=== PATIENT | female | born 1985 | race Caucasian/White ===

== ENCOUNTER 2017-05-13 11:23 | Emergency (ER) | payer OTHER ==
[2017-05-13 11:50] VITALS: BP 117/80; PULSE 86; TEMP 98.3; BMI 18.6
[2017-05-13] MEDS ORDERED: IBUPROFEN 600 MG TABLET (FP) PO ONE (12:27)
[2017-05-13] MEDS ORDERED: LIDOCAINE HCL 2% JELLY (30 ML/TUBE) TP ONE (12:27)
[2017-05-13] MEDS ORDERED: BUPIVACAINE HCL 0.5% 250 MG/50 ML VIAL IJ ONE (12:29)
[2017-05-13] MEDS ORDERED: LIDOCAINE HCL 1%, 10 MG/ML (20ML VIAL) ONE (12:29)
[2017-05-13] MEDS ORDERED: BUPIVACAINE HCL/PF 0.5% (5MG/ML) 10 ML VIAL ONE (12:29)
[2017-05-13] MEDS ORDERED: LIDOCAINE HCL 2% JELLY (5 ML/TUBE) ONE (12:29)
--- NOTE | 2017-05-13 12:29 | PDOC ---
History of Present Illness - General Chief Complaint: Toothache Stated Complaint: TOOTHACHE Time Seen by Provider: 05/13/17 12:06 History Source: Patient Exam Limitations: No Limitations - History of Present Illness Initial Comments: 05/13/17 12:29 CHIEF COMPLAINT: Toothache HISTORY OF PRESENT ILLNESS: This is an otherwise healthy 31 year old female who presents for evaluation of left madibular molar pain. She has a cap that she lost about a week ago and has been having pain since then which is unrelieved by Motrin. She denies fevers/chills, facial swelling, or any other symptoms. V/s on arrival are unremarkable. REVIEW OF SYSTEMS: GENERAL/CONSTITUTIONAL: No fever or chills. No weakness. No weight change. HEAD, EYES, EARS, NOSE AND THROAT: No change in vision. No ear pain or discharge. No sore throat. CARDIOVASCULAR: No chest pain or palpitations. RESPIRATORY: No cough, wheezing, or shortness of breath. GASTROINTESTINAL: No nausea, vomiting, diarrhea or constipation. GENITOURINARY: No dysuria, frequency, or change in urination. MUSCULOSKELETAL: No joint or muscle swelling or pain. No neck or back pain. SKIN: No rash or easy bruising. NEUROLOGIC: No headache, vertigo, loss of consciousness, or loss of sensation. PSYCHIATRIC: No depression or anxiety. ENDOCRINE: No increased thirst. No abnormal weight change. HEMATOLOGIC/LYMPHATIC: No anemia, easy bleeding, or history of blood clots. ALLERGIC/IMMUNOLOGIC: No hives or skin allergy. No latex allergy. PHYSICAL EXAM: GENERAL: The patient is awake, alert, and fully oriented, in no acute distress. ENT: Pupils equal, round and reactive to light, extraocular movements intact, sclera anicteric, conjunctiva clear. Neck supple. Left mandibular second molar missing cap - no gingival erythema or swelling. LUNGS: Clear to auscultation bilaterally. Normal excursion. No respiratory distress or use of accessory muscles. CV: RRR, S1/S2, no MRG. Cap refill < 2 sec. ABDOMEN: Soft, non-distended, non-tender. EXTREMITIES: Normal range of motion, no edema. NEUROLOGICAL: Normal speech, normal gait. CN II-XII grossly intact. PSYCH: Normal mood, normal affect. SKIN: Warm, dry, normal turgor, no rashes or lesions noted. Past History - Past Medical History Allergies/Adverse Reactions: Allergies Allergy/AdvReac Type Severity Reaction Status Date / Time No Known Allergies Allergy Verified 05/13/17 11:48 Home Medications: Ambulatory Orders NK [No Known Home Medication] 05/13/17 Other medical history: denies - Immunization History Immunization Up to Date: No - Psycho/Social/Smoking Cessation Hx Suicidal Ideation: No Smoking History: Never smoked Hx Alcohol Use: No Drug/Substance Use Hx: No *Physical Exam - Vital Signs Last Vital Signs Temp Pulse Resp BP Pulse Ox 98.3 F 86 18 117/80 100 05/13/17 11:35 05/13/17 11:35 05/13/17 11:35 05/13/17 11:35 05/13/17 11:35 ED Treatment Course - ADDITIONAL ORDERS Additional order review: Laboratory Results 05/13/17 12:20 Urine HCG, Qual Positive Medical Decision Making - Medical Decision Making 05/13/17 15:30 A/P: 31 year old female with dental pain. No signs of infection. 1. Inferior alveolar block with 1mL 1% lidocaine and 1mL bupivicane with good relief 2. Urine POSITIVE - bhcg sent and resulted at 252 3. Transvaginal u/s reported: no IUP 4. Patient agrees to follow up for repeat testing in 1 week 5. Return precautions reviewed *DC/Admit/Observation/Transfer Diagnosis at time of Disposition: Pain, dental Qualifiers: Weeks of gestation: less than 8 weeks Qualified Code(s): Z3A.01 - Less than 8 weeks gestation of - Discharge Dispostion Admit: No - Patient Instructions Printed Discharge Instructions: DI for Dental Pain Additional Instructions: -You will need repeat blood work and ultrasound in one week to evaluate your . You do this at our clinic [facility] ([phone]) -Take Tylenol as needed for pain -Follow up with a dentist for definitive treatment -[facility] is one option: KADEN Chavis Opens at 4:00 PM KADEN Rodriguez Opens at 4:00 PM - Post Discharge Activity Work/School Note: Back to Work
[2017-05-13] MEDS ORDERED: ACETAMINOPHEN 500 MG TABLET (FP) PO ONE (15:02)
[2017-05-13] MEDS ORDERED: ACETAMINOPHEN 325 MG TABLET (FP) ONE (15:05)
== END 2017-05-13 15:13 | disposition home or self-care (01) ==
LOC: JERFT 11:23
DX: O99.89 Other specified diseases and conditions complicating pregnancy, childbirth and the puerperium (principal); K08.89 Other specified disorders of teeth and supporting structures; Z3A.01 Less than 8 weeks gestation of pregnancy
CPT/HCPCS: 36415; 76801-TC; 84702; 84703; 99281-25

== ENCOUNTER 2017-05-29 18:17 | Emergency (ER) | payer OTHER ==
[2017-05-29 18:28] VITALS: BP 110/65; PULSE 101; TEMP 98.7; BMI 18.6
--- NOTE | 2017-05-29 20:33 | PDOC ---
History of Present Illness - General Chief Complaint: Revisit,Radiology Variance Stated Complaint: ER REVIST Time Seen by Provider: 05/29/17 20:04 History Source: Patient Exam Limitations: No Limitations - History of Present Illness Travel History: No Initial Comments: 05/29/17 20:28 31yo Female patient with no significant past medical history presents to ED for follow up. Patient was seen on 05-13-17 for dental pain, and found to have + Urine . HCG level>200, US- neg for IUP. Patient was told to return in 1 week for repeat US. After examination patient in room, patient stated she had been here for 4 hour already. Patient was informed that she needed blood work and repeat US and this could take upwards of three hours. Patient refused and decided it was best to go home. She states she has to get up at 5 am for work and she did not want to be tired. Patient also had c/o vaginal bleeding/ spotting at this time. She denies any other complaints at this time. Past History - Travel Traveled outside of the country in the last 30 days: No Close contact w/someone who was outside of country & ill: No - Past Medical History Allergies/Adverse Reactions: Allergies Allergy/AdvReac Type Severity Reaction Status Date / Time No Known Allergies Allergy Verified 05/29/17 18:28 Home Medications: Ambulatory Orders NK [No Known Home Medication] 05/13/17 Other medical history: NONE - Immunization History Immunization Up to Date: No - Suicide/Smoking/Psychosocial Hx Smoking History: Never smoked Hx Alcohol Use: No Drug/Substance Use Hx: No Abd/GI Specific PMHX - Complaint Specific PMHX Colitis: No Diverticulitis: No Gall Bladder Disease: No GERD: No Hepatitis: No Irritable Bowel Synd (IBS): No Pancreatitis: No GI Ulcer Disease: No Review of Systems - Review of Systems Able to Perform ROS?: Yes Is the patient limited [place] proficient: No : Yes: Other (Vaginal Bleeding- .) All Other Systems: Reviewed and Negative *Physical Exam - Vital Signs Last Vital Signs Temp Pulse Resp BP Pulse Ox 98.7 F 101 H 20 110/65 100 05/29/17 18:25 05/29/17 18:25 05/29/17 18:25 05/29/17 18:25 05/29/17 18:25 - Physical Exam General Appearance: Yes: Nourished, Appropriately Dressed. No: Apparent Distress, Mild Distress, Moderate Distress, Severe Distress Neck: positive: Trachea midline, Supple. negative: Rigid, Stridor, Lymphadenopathy (R), Lymphadenopathy (L), Tender lateral, Tender midline Respiratory/Chest: positive: Lungs Clear, Normal Breath Sounds. negative: Chest Tender, Respiratory Distress, Accessory Muscle Use, Labored Respiration, Rapid RR Cardiovascular: positive: Regular Rhythm, Regular Rate Gastrointestinal/Abdominal: positive: Normal Bowel Sounds, Soft. negative: Distended, Guarding, Rebound, Tenderness Musculoskeletal: positive: Normal Inspection. negative: CVA Tenderness Extremity: positive: Normal Capillary Refill, Normal Inspection, Normal Range of Motion. negative: Pedal Edema, Swelling, Calf Tenderness, Erythema, Inflammation Integumentary: positive: Normal Color, Dry, Warm Neurologic: positive: supervisor contingents II-XII NML intact, Fully Oriented, Alert, Normal Mood/ Affect, Normal Response, Motor Strength 5/5 ED Treatment Course - RADIOLOGY Radiology Studies Ordered: Category Date Time Status <14WKS US [US] Stat Ultrasound 05/29/17 20:23 Ordered *DC/Admit/Observation/Transfer Diagnosis at time of Disposition: Antepartum hemorrhage - Discharge Dispostion Disposition: ELOPED Condition at time of disposition: Stable Admit: No - Patient Instructions Printed Discharge Instructions: DI for Vaginal Bleeding During Print Language: FIJIAN
== END 2017-05-29 20:05 | disposition left against medical advice (07) ==
LOC: JER 18:17
DX: O46.90 Antepartum hemorrhage, unspecified, unspecified trimester (principal)
CPT/HCPCS: 99281-25

== ENCOUNTER 2018-01-08 23:35 | Inpatient (IN) | payer OTHER ==
[2018-01-09] MEDS: ELECTROLYTE-148 SOLN 1,000 ML IV SCH ×2 (00:30→02:43)
[2018-01-09] MEDS ORDERED: AMPICILLIN SODIUM 2 GM VIAL ONE (00:35)
[2018-01-09 01:07] LABS: BASO % 0.3 % (0-2.0); EOS % 0.7 % (0-4.5); HEMATOCRIT 34.1 % (32.4-45.2); LYMPH % 24.3 % (8-40); MCH 32.1 pg (25.7-33.7); MEAN CELL VOLUME 91.5 fl (80-96); MEAN PLT VOLUME 7.7 fl (7.5-11.1); NEUT % 65.7 % (42.8-82.8); PLATELET COUNT 241 K/MM3 (134-434); RBC 3.73 M/mm3 (3.60-5.2); RDW 14.4 % (11.6-15.6); WHITE BLOOD COUNT 7.5 K/mm3 (4.0-10.0)
[2018-01-09 01:14] VITALS: BMI 24.5
[2018-01-09] MEDS ORDERED: FENTANYL/BUPIVACAINE/NS/PF - PCEA - 50 ML DISP.SYRIN EP ONE (01:25)
[2018-01-09] MEDS ORDERED: NALOXONE HCL 0.4 MG/ML VIAL IVPUSH PRN (01:29)
[2018-01-09] MEDS ORDERED: FENTANYL/BUPIVACAINE/NS/PF - PCEA - 50 ML DISP.SYRIN EP SCH (01:30)
[2018-01-09 01:37] LABS: INR 0.91 (0.82-1.09); PROTHROMBIN TIME (PATIENT) 10.3 SEC (9.7-13.0)
[2018-01-09 01:40] LABS: ACTIVATED PTT 22.5 SECONDS (26.9-34.4)
[2018-01-09 01:51] LABS: ANION GAP 14 (8-16); BLOOD UREA NITROGEN 10 mg/dL (7-18); CALCIUM 8.4 mg/dL (8.5-10.1); CHLORIDE 105 mmol/L (98-107); CO2 20 mmol/L (21-32); CREATININE 0.6 mg/dL (0.55-1.02); GLUCOSE,RANDOM 103 mg/dL (74-106); SODIUM 139 mmol/L (136-145)
--- NOTE | 2018-01-09 01:58 | HP ---
Past Medical History - Admission Chief Complaint: Labor pain History of Present Illness: 32 yo @ 38 weeks gestation, EDC 01/23/18, presents to L&D c/o labor pain. She denies any vaginal bleeding nor rupture of membrane. Upon admission she was 4cm dilated. History Source: Patient Limitations to Obtaining History: No Limitations - Past Medical History ...: 4 ...Para: 2 ...Term: 2 ...: 0 ...Spon : 1 ...Induced : 0 ...Multiple Gestation: 0 ...LMP: 04/18/17 ... Weeks Gestation by Dates: 38 ...EDC by Dates: 01/23/18 ...EDC by Sono: 01/23/18 - Past Surgical History Past Surgical History: Yes: None Hx Myomectomy: No Hx Transabdominal Cerclage: No - Smoking History Smoking history: Never smoked Have you smoked in the past 12 months: No - Alcohol/Substance Use Hx Alcohol Use: No History of Substance Use: reports: None - Social History Usual Living Arrangement: Yes: With Spouse History of Recent Travel: No Home Medications - Allergies Allergies/Adverse Reactions: Allergies Allergy/AdvReac Type Severity Reaction Status Date / Time No Known Allergies Allergy Verified 05/29/17 18:28 - Home Medications Home Medications: Ambulatory Orders NK [No Known Home Medication] 05/13/17 Family Disease History - Family Disease History Family History: Unremarkable Review of Systems - Review of Systems Constitutional: reports: No Symptoms Eyes: reports: No Symptoms HENT: reports: No Symptoms Neck: reports: No Symptoms Cardiovascular: reports: No Symptoms Respiratory: reports: No Symptoms Gastrointestinal: reports: No Symptoms Genitourinary: reports: Pain Breasts: reports: No Symptoms Reported Musculoskeletal: reports: No Symptoms Integumentary: reports: No Symptoms Neurological: reports: No Symptoms Endocrine: reports: No Symptoms Hematology/Lymphatic: reports: No Symptoms Psychiatric: reports: No Symptoms Pain Intensity: 8 Physical Exam - Maternity Vital Signs: Vital Signs Temperature 98.6 F 01/09/18 01:03 Pulse Rate 107 H 01/09/18 01:03 Respiratory Rate 18 01/09/18 01:03 Blood Pressure 121/71 01/09/18 01:03 O2 Sat by Pulse Oximetry (%) Constitutional: Yes: Well Nourished Eyes: Yes: Conjunctiva Clear HENT: Yes: Atraumatic Neck: Yes: Supple Cardiovascular: Yes: Regular Rate and Rhythm Lungs: Clear to auscultation - Abdominal Exam/OB Number of Fetuses: Single Presentation: Vertex Regularity: Regular Intensity: Mod/Strong - Vaginal Exam/OB Presentation: Vertex/Position - Physical Exam ...Motor Strength: WNL Psychiatric: Yes: Alert, Oriented - Labs Lab Results: CBC, BMP 01/09/18 00:40 01/09/18 00:40 Problem List - Problems (1) Pain during labor Code(s): O99.89 - OTH DISEASES AND CONDITIONS COMPL PREG/CHLDBRTH; R52 - PAIN, UNSPECIFIED Assessment/Plan Active labor Admit to L&D Analgesia as needed Anticipate
[2018-01-09] MEDS ORDERED: OXYTOCIN 30 UNITS in 0.9% NS 30 UNIT/500 ML INFUS.BAG IVPB SCH (02:15)
[2018-01-09] MEDS ORDERED: AMPICILLIN - 2 GM in SODIUM CHLORIDE 100 ML IVPB ONE (02:28)
[2018-01-09] MEDS ORDERED: OXYTOCIN 20 UNITS in 0.9% NS 20 UNIT/1,000 ML INFUS.BAG IV ONE ×3 (05:09→13:55)
[2018-01-09] MEDS ORDERED: LIDOCAINE HCL 1% PRESERVATIVE FREE - 30ML VIAL ONE (05:09)
[2018-01-09] MEDS ORDERED: BENZOCAINE 20% 57 GM BOTTLE TP PRN (05:36)
[2018-01-09] MEDS ORDERED: WITCH HAZEL 50% (TUCKS) 40 PAD/JAR PAD TP PRN (05:36)
[2018-01-09] MEDS ORDERED: BENZOCAINE 28 GM HEMORRHOIDAL OINTMENT TP PRN (05:36)
[2018-01-09] MEDS ORDERED: METHYLERGONOVINE MALEATE 0.2 MG/1 ML AMP IM PRN (05:36)
[2018-01-09] MEDS ORDERED: BISACODYL 10 MG SUPP.RECT RC PRN (05:36)
--- NOTE | 2018-01-09 05:40 | PN ---
Delivery - Delivery Vaginal Delivery: Spontaneous Type of Anesthesia: Epidural Episiotomy/Laceration: 1st degree EBL (cc): 300 Delivery, Single - [place] Feeding Plan Initial Plan: Elected not to breastfeed exclusively throughout hospitalization Remarks - Remarks Remarks: Normal spontaneous vaginal delivery of a live infant girl over first degree laceration. Nose / Oropharynx suctioned @ perineum ( + meconium ). Cord clamped and cut Placenta expelled spontaneously intact.
[2018-01-09] MEDS ORDERED: OXYTOCIN 20 UNITS in 0.9% NS 20 UNIT/1,000 ML INFUS.BAG IV SCH (05:45)
[2018-01-09] MEDS: ACETAMINOPHEN 325 MG TABLET (FP) PO PRN ×3 (08:21→22:02)
[2018-01-09] MEDS: IBUPROFEN 600 MG TABLET (FP) PO PRN ×3 (08:23→22:01)
[2018-01-09] MEDS ORDERED: IBUPROFEN 600 MG TABLET (FP) PO ONE (08:26)
[2018-01-09] MEDS ORDERED: ACETAMINOPHEN 325 MG TABLET (FP) ONE (08:26)
[2018-01-09] MEDS: FERROUS SO4 325 MG TABLET (FP) PO SCH ×2 (14:40→17:28)
[2018-01-09] MEDS: PRENATAL VITAMINS W/ FOLIC ACID TABLET (FP) PO SCH (14:41)
[2018-01-10 07:48] LABS: BASO % 0.5 % (0-2.0); EOS % 1.4 % (0-4.5); HEMATOCRIT 29.9 % (32.4-45.2); HEMOGLOBIN 10.3 GM/dL (10.7-15.3); LYMPH % 26.4 % (8-40); MCH 32.1 pg (25.7-33.7); MCHC 34.4 g/dl (32.0-36.0); MEAN CELL VOLUME 93.2 fl (80-96); MEAN PLT VOLUME 7.3 fl (7.5-11.1); MONO % 6.7 % (3.8-10.2); PLATELET COUNT 193 K/MM3 (134-434); RBC 3.21 M/mm3 (3.60-5.2); WHITE BLOOD COUNT 9.1 K/mm3 (4.0-10.0)
[2018-01-10] MEDS: FERROUS SO4 325 MG TABLET (FP) PO SCH ×3 (08:49→16:58)
--- NOTE | 2018-01-10 08:50 | PN ---
Post Progress Note Type of Delivery: Vital Signs: Vital Signs Temperature 98.2 F 01/10/18 01:29 Pulse Rate 87 01/10/18 01:29 Respiratory Rate 17 01/10/18 01:29 Blood Pressure 100/63 01/10/18 01:29 O2 Sat by Pulse Oximetry (%) 97 01/09/18 06:45 Breast Exam: Yes: Soft Uterus: Yes: Fundus Firm Abdomen/GI: Yes: Abdomen soft, Passing flatus Lochia: Yes: Serosa Lochia, amount: Moderate Extremities: Yes: Calves non-tender Perineum: Yes: Laceration Activity: Ambulating - Labs Labs: CBC WBC 9.1 K/mm3 (4.0-10.0) 01/10/18 07:12 RBC 3.21 M/mm3 (3.60-5.2) L 01/10/18 07:12 Hgb 10.3 GM/dL (10.7-15.3) L D 01/10/18 07:12 Hct 29.9 % (32.4-45.2) L 01/10/18 07:12 MCV 93.2 fl (80-96) 01/10/18 07:12 MCH 32.1 pg (25.7-33.7) 01/10/18 07:12 MCHC 34.4 g/dl (32.0-36.0) 01/10/18 07:12 RDW 15.0 % (11.6-15.6) 01/10/18 07:12 Plt Count 193 K/MM3 (134-434) 01/10/18 07:12 MPV 7.3 fl (7.5-11.1) L 01/10/18 07:12 Neutrophils % 65.0 % (42.8-82.8) 01/10/18 07:12 Lymphocytes % 26.4 % (8-40) 01/10/18 07:12 Monocytes % 6.7 % (3.8-10.2) 01/10/18 07:12 Eosinophils % 1.4 % (0-4.5) D 01/10/18 07:12 Basophils % 0.5 % (0-2.0) 01/10/18 07:12 Assessment/Plan condition stable s/p nscd continue care
[2018-01-10] MEDS: PRENATAL VITAMINS W/ FOLIC ACID TABLET (FP) PO SCH (10:01)
[2018-01-10] MEDS: ACETAMINOPHEN 325 MG TABLET (FP) PO PRN (20:26)
[2018-01-10] MEDS: IBUPROFEN 600 MG TABLET (FP) PO PRN (20:26)
[2018-01-10] MEDS ORDERED: SENNOSIDES/DOCUSATE COMBO (SENNA PLUS) TABLET (UD) PO PRN (22:00)
--- NOTE | 2018-01-11 01:47 | DS ---
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: Vital Signs Temperature 98.7 F 01/10/18 20:20 Pulse Rate 90 01/10/18 20:20 Respiratory Rate 20 01/10/18 20:20 Blood Pressure 101/58 01/10/18 20:20 O2 Sat by Pulse Oximetry (%) 97 01/09/18 06:45 Constitutional: Yes: Well Nourished Eyes: Yes: Conjunctiva Clear HENT: Yes: Atraumatic Neck: Yes: Supple Cardiovascular: Yes: Regular Rate and Rhythm Respiratory: Yes: Regular Gastrointestinal: Yes: Normal Bowel Sounds External Genitalia: Yes: Normal Vaginal Exam: Yes: Normal Cervix: Yes: Normal Uterus: Yes: Firm ....Post : Yes: Uterus firm, Moderate lochia serosa Musculoskeletal: Yes: WNL Extremities: Yes: WNL Integumentary: Yes: WNL Neurological: Yes: Alert, Oriented ...Motor Strength: WNL Psychiatric: Yes: Alert, Oriented Labs: CBC, BMP 01/10/18 07:12 01/09/18 00:40 Delivery - Delivery Vaginal Delivery: Spontaneous Type of Anesthesia: Epidural Episiotomy/Laceration: 1st degree EBL (cc): 300 Delivery, Single - Stages of Labor Date 1st Stage Initiatied: 01/08/18 Time 1st Stage Initiated: 20:00 Date 2nd Stage Initiated: 01/09/18 Time 2nd Stage Initiated: 05:05 Date of Delivery: 01/09/18 Time of Delivery: 05:22 Time Placenta Delivered: 05:25 - 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 call office for appointment. Referrals: Naa Lester MD [Staff Physician] - Disposition: HOME - Home Medications Comprehensive Discharge Medication List: Ambulatory Orders Vitamins (Sjr) - 1 tab PO DAILY 01/09/18
[2018-01-11] MEDS: FERROUS SO4 325 MG TABLET (FP) PO SCH (08:24)
[2018-01-11 08:33] VITALS: BP 125/78; PULSE 85; TEMP 97.2
[2018-01-11] MEDS: PRENATAL VITAMINS W/ FOLIC ACID TABLET (FP) PO SCH (09:16)
== END 2018-01-11 10:40 | disposition home or self-care (01) | DRG 560 ==
LOC: JDEL 23:35 → JLDR 01-09 00:20 → J3W 01-09 14:10
PROVIDERS: ADMIT Obstetrics & Gynecology; ATTEND Obstetrics & Gynecology
PROC: 10E0XZZ Delivery of Products of Conception, External Approach (ICD-10-PCS; principal; 2018-01-09)
PROC: 0HQ9XZZ Repair Perineum Skin, External Approach (ICD-10-PCS; 2018-01-09)
DX: O70.0 First degree perineal laceration during delivery (principal); Z3A.38 38 weeks gestation of pregnancy; Z37.0 Single live birth
CPT/HCPCS: 36415; 59409; 80048; 85025; 85610; 85730; 86593; 86850; 86900; 86901

== ENCOUNTER 2018-02-27 04:59 | Day surgery (SDC) | payer OTHER ==
[2018-02-26 14:35] VITALS: BMI 21.4
[2018-02-27] MEDS ORDERED: PROPOFOL 20 ML ONE (07:41)
[2018-02-27] MEDS ORDERED: MIDAZOLAM HCL 2 MG/2 ML SINGLE DOSE VIAL ONE (07:41)
[2018-02-27] MEDS ORDERED: ROCURONIUM BROMIDE 50 MG/5 ML VIAL ONE (07:41)
[2018-02-27] MEDS ORDERED: LIDOCAINE HCL/PF 2% SDV 5ML VIAL ONE (07:41)
[2018-02-27] MEDS ORDERED: DEXAMETHASONE SOD PHOSPHATE 4 MG/1 ML VIAL ONE ×2 (07:41→08:31)
--- NOTE | 2018-02-27 08:07 | HP ---
Admitting History and Physical - Admission Chief Complaint: Multiparity,, desires permanent sterilization History of Present Illness: 32 yo Para 3 desires permanent sterilization. She's pre op for bilateral tubal ligation. History Source: Patient Limitations to Obtaining History: No Limitations - Past Medical History ...LMP Comment: had baby 01/09/18 ...: No ...Para: 9 - Past Surgical History Past Surgical History: Yes: None - Smoking History Smoking history: Never smoked Have you smoked in the past 12 months: No - Alcohol/Substance Use Hx Alcohol Use: No History of Substance Use: reports: None - Social History History of Recent Travel: No Home Medications - Allergies Allergies/Adverse Reactions: Allergies Allergy/AdvReac Type Severity Reaction Status Date / Time No Known Allergies Allergy Verified 02/27/18 07:01 - Home Medications Home Medications: Ambulatory Orders Vitamins (Sjr) - 1 tab PO DAILY 01/09/18 Family Disease History - Family Disease History Family History: Unremarkable Review of Systems - Review of Systems Constitutional: reports: No Symptoms Eyes: reports: No Symptoms HENT: reports: No Symptoms Neck: reports: No Symptoms Cardiovascular: reports: No Symptoms Respiratory: reports: No Symptoms Gastrointestinal: reports: No Symptoms Genitourinary: reports: No Symptoms Breasts: reports: No Symptoms Reported Musculoskeletal: reports: No Symptoms Integumentary: reports: No Symptoms Neurological: reports: No Symptoms Endocrine: reports: No Symptoms Hematology/Lymphatic: reports: No Symptoms Psychiatric: reports: No Symptoms Pain Intensity: 0 Physical Examination Vital Signs: Vital Signs Temperature 98.6 F 02/27/18 07:00 Pulse Rate 88 02/27/18 07:00 Respiratory Rate 20 02/27/18 07:00 Blood Pressure 117/83 02/27/18 07:00 O2 Sat by Pulse Oximetry (%) 99 02/27/18 06:57 Constitutional: Yes: Well Nourished Eyes: Yes: Conjunctiva Clear HENT: Yes: Atraumatic Neck: Yes: Supple Cardiovascular: Yes: Regular Rate and Rhythm Respiratory: Yes: Regular Gastrointestinal: Yes: Normal Bowel Sounds Musculoskeletal: Yes: WNL Extremities: Yes: WNL Integumentary: Yes: WNL Neurological: Yes: Alert, Oriented ...Motor Strength: WNL Psychiatric: Yes: Alert, Oriented Problem List - Problems (1) Multiparity Code(s): Z64.1 - PROBLEMS RELATED TO MULTIPARITY (2) Sterilization Code(s): Z30.2 - ENCOUNTER FOR STERILIZATION Assessment/Plan Multiparity Pre op for tubal ligation Consent signed Anesthesia to see patient
[2018-02-27] MEDS ORDERED: GLYCOPYRROLATE 0.2 MG/1 ML VIAL ONE (08:31)
[2018-02-27] MEDS ORDERED: NEOSTIGMINE METHYLSULFATE 0.5 MG/ML - 10 ML MDV ONE (08:31)
--- NOTE | 2018-02-27 08:57 | OP ---
Operative Note - Note: Operative Date: 02/27/18 Pre-Operative Diagnosis: Multiparity Operation: Bilateral Tubal Ligation Findings: Normal pelvis Post-Operative Diagnosis: Same as Pre-op Surgeon: Naa Lester Anesthesia: General Specimens Removed: None Estimated Blood Loss (mls): 5
[2018-02-27] MEDS ORDERED: oxyCODONE HCL 5 MG TABLET PO PRN ×2 (09:55)
[2018-02-27] MEDS ORDERED: ONDANSETRON 4 MG/2 ML VIAL IVPUSH PRN (09:55)
[2018-02-27] MEDS ORDERED: LACTATED RINGERS SOLUTION 1,000 ML IV SCH (10:00)
[2018-02-27] MEDS ORDERED: oxyCODONE HCL 5 MG TABLET ONE (11:38)
[2018-02-27 12:52] VITALS: BP 102/69; PULSE 78; TEMP 98.2
== END 2018-02-27 12:50 | disposition home or self-care (01) ==
LOC: JASU-SURG 04:59
PROVIDERS: ATTEND Obstetrics & Gynecology
PROC: 0U574ZZ Destruction of Bilateral Fallopian Tubes, Percutaneous Endoscopic Approach (ICD-10-PCS; principal; 2018-02-27 08:00)
DX: Z30.2 Encounter for sterilization (principal)
CPT/HCPCS: 94760

== ENCOUNTER → 2019-01-28 | Emergency (ER) | payer SELFPAY ==
[2019-01-28 19:34] VITALS: BP 142/94; PULSE 102; TEMP 97.8; BMI 21.1
--- NOTE | 2019-01-28 19:36 | PDOC ---
Rapid Medical Evaluation Chief Complaint: Pain Time Seen by Provider: 01/28/19 19:31 Medical Evaluation: Allergies Allergy/AdvReac Type Severity Reaction Status Date / Time No Known Allergies Allergy Verified 01/28/19 19:32 01/28/19 19:32 I have performed a brief in-person evaluation of this patient. The patient presents with a chief complaint of: +difficulty with urination, + dysuria, +hematuria, denies fever, NVD, + chills. tubal ligation 1 year ago Pertinent physical exam findings: mild suprapubic tenderness,tachy I have ordered the following: urine The patient will proceed to the ED for further evaluation.
== END | disposition left against medical advice (07) ==
LOC: JER 19:10
DX: Z53.21 Procedure and treatment not carried out due to patient leaving prior to being seen by health care provider (principal)
CPT/HCPCS: 99281-25

== ENCOUNTER 2019-01-30 15:30 | Emergency (ER) | payer SELFPAY | END 2019-01-30 18:09 | disposition home or self-care (01) | LOC: JER 15:30 ==